=== PATIENT | male | born 1950 | race Caucasian/White ===

== ENCOUNTER 2017-08-24 16:50 | Inpatient (IN) | payer MEDICARE, MEDICAID ==
[2017-08-24 17:25] VITALS: BP 108/68
[2017-08-24] MEDS ORDERED: Maalox 30 mL Cup PO PRN (17:42)
[2017-08-24] MEDS ORDERED: Magnesium Hydroxide (MOM) 30 mL UDC PO PRN (17:42)
[2017-08-25] MEDS: Multivitamin Tab PO SCH (10:11)
[2017-08-25] MEDS: Dabigatran Mesylate 75 mg Cap PO SCH ×2 (10:31→16:30)
[2017-08-25] MEDS: Hydrocodone/APAP 10 mg/325 mg Tab PO PRN (20:51)
--- NOTE | 2017-08-25 21:29 | History and Physical ---
History of Present Illness - HPI Chief Complaint: Mental health disorder HPI: 67 yrs old male was admitted to [facility] for mental health evaluation and treatment. Patient stated he was recently hospitalized and was diagnosed with bilateral leg DVT. He stated that he left the hospital AMA without any work up. He complaints of bilateral knee pain 10 and requested stronger pain medication. Vital Signs: Last Vital Signs Temp 97.3 F 08/24/17 20:00 Pulse 73 08/24/17 20:00 Resp 20 08/25/17 08:00 BP 106/73 08/24/17 20:00 Pulse Ox 98 08/24/17 20:00 Past Medical History Pulmonary: Report: No Pertinent Hx LEARNING AND DEVELOPMENT MANAGER: Report: No Pertinent Hx, Peripheral neuropathy GI: Report: No Pertinent Hx Psych: Report: Other (mental health disorder) Musculoskeletal: Report: Osteoarthritis Infectious Disease: Report: No Pertinent Hx Renal/: Report: No Pertinent Hx Endocrine: Report: No Pertinent Hx Dermatology: Report: No Pertinent Hx Social History Smoke: 1 pack per day Alcohol: None Drugs: None Lives: Alone Domestic Violence: Negative (None) - Medications Home Medications: Home Medication Medication Instructions Recorded Type Dabigatran Etexilate Mesylate 150 mg PO BID 08/24/17 History [Pradaxa] Gabapentin 300 mg PO TID 08/24/17 History Latanoprost 0.005% Ophth Soln 1 drop EACH EYE DAILY 08/24/17 History [Xalatan 0.005% Ophth Soln] [place] Carbonate 900 mg PO 08/24/17 History Mirtazapine [Remeron] 30 mg PO HS 08/24/17 History buPROPion [Wellbutrin] 100 mg PO DAILY 08/24/17 History - Allergies Allergies/Adverse Reactions: Allergies Allergy/AdvReac Type Severity Reaction Status Date / Time No Known Allergies Allergy Verified 08/24/17 17:17 Review of Systems - Review of Systems Constitutional: Report: No Significant Eyes: Report: No Significant ENT: Report: No Significant Respiratory: Report: No Significant Cardiovascular: Report: No Significant Gastrointestinal: Report: No Significant Musculoskeletal: Report: Other (knee pain) Skin: Report: No Significant Neurological: Report: No Significant Physical Exam - Physical Exam Neck: Report: Within normal limits Cardiovascular Systems: Report: No JVD Present Respiratory: Report: Breath Sounds are within normal limits Abdomen: Report: Non-tender to palpation Extremities: Report: Non-tender to palpation. Skin: Report: Color of skin is within normal limits - Assessment Assessment: Bilateral leg DVT per history Bilateral Knee pain Smoking Neuropathy Mental health disorder - Plan Plan: Bilateral leg venous doppler to confirm DVT Continue anticogualtion Bilateral knee xray Mobile added Smoking cessation advise Psych management per psychitrist Plan of care discussed with nursing staff SANDEEP Sutherland
--- NOTE | 2017-08-26 06:13 | Psychosocial Evaluation ---
DATE OF SERVICE: JUSTIFICATION FOR HOSPITALIZATION: The patient came to the hospital seeking help, "I need to tune up," attesting to severe depression, suicidal, endorsing intent and plan, currently on hold. CHIEF COMPLAINT: "I need help." HISTORY OF PRESENT ILLNESS: A 67-year-old male with history of bipolar, history of suicide attempts, hospitalizations in the past, stopped his medications because he felt that he was doing better, but decompensated, endorsing intent and plan to hurt self, shoot self. The patient attesting to fair sleep, poor appetite, also increased alcohol intake, erratic use of whiskey, last drink was about 4 days ago. PAST PSYCHIATRIC HISTORY: Suicide attempt many years ago, he cut his wrist, "it was a cry for help." He notes he has been to psychiatric hospitals in the past. FAMILY HISTORY: Noncontributory. SOCIAL HISTORY: Born in [place], currently living in [place] by himself, single, never , no kids. He does use nicotine, trying to cut back, erratic use of alcohol, no other drugs of abuse. MEDICATIONS: Reviewed. MENTAL STATUS EXAMINATION: Somewhat unkempt, long hilliard. Good eye contact. Speech within normal limits. Mood "overall better." Affect broad. Thought processes were linear. The patient currently here due to SI, endorsing intent and plan. No HI. No overt psychotic symptoms. Insight and judgment fair. He wants help. PROVISIONAL DIAGNOSES: Bipolar, most recent episode depressed. No evidence of psychosis. MEDICAL: Please see full H and P. Pain 0/10. ESTIMATED LENGTH OF STAY: 5-10 days. ASSESSMENT: The patient requiring inpatient hospitalization, severely depressed, suicidal, not brittany for safety, but wanting help. PLAN: Restart lithium. TREATMENT PLAN: Includes group as well as milieu therapy. CONDITIONS FOR DISCHARGE: Improved mood, improved affect, cessation of any SI, better control of his mood symptoms. [facility]# [id number]
[2017-08-26] MEDS: Hydrocodone/APAP 10 mg/325 mg Tab PO PRN ×3 (06:49→20:49)
--- NOTE | 2017-08-26 07:52 | Diagnostic Imaging Report ---
Left knee (2 views) HISTORY: Pain There is severe lateral joint space narrowing. Hypertrophic bone formation noted about the lateral tibial plateau. Small spur formation noted about the medial tibial plateau and tibial spines. Marked narrowing of the patellofemoral joint region with hypertrophic bone formation. No acute abnormalities. No fractures. Small calcification noted in the soft tissues adjacent to the medial femoral condyle probably a dystrophic basis. Additional vascular calcification noted. IMPRESSION: 1. No acute abnormalities 2. Severe degenerative joint disease 3. Atherosclerotic vascular changes
--- NOTE | 2017-08-26 07:53 | Diagnostic Imaging Report ---
Right knee (2 views) HISTORY: Pain Severe lateral joint space narrowing. Hypertrophic bone formation noted about the lateral femoral condyle and lateral tibial plateau. Narrowing and marked hypertrophic bone formation seen about the patellofemoral joint region. No acute abnormalities. No fractures. Vascular calcification is seen. IMPRESSION: 1. Severe degenerative joint disease 2. No acute abnormalities 3. Atherosclerotic vascular changes
[2017-08-26] MEDS: Dabigatran Mesylate 75 mg Cap PO SCH ×2 (09:57→16:46)
[2017-08-26] MEDS: Multivitamin Tab PO SCH (09:57)
--- NOTE | 2017-08-26 12:58 | Diagnostic Imaging Report ---
Bilateral lower extremity DVT study HISTORY: Pain COMPARISON: None Technique: Longitudinal and transverse sonographic images of the bilateral lower extremity veins were obtained with doppler analysis. FINDINGS: Exam of the right side demonstrates diffuse thrombus extending from the right common femoral to the right superficial femoral vein. The remaining veins of the right lower extremity are patent without evidence of DVT formation. Exam of the left side demonstrates thrombus within the left common femoral and proximal left superficial femoral vein. The remaining the left lower extremity are patent without evidence of thrombus formation. 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 There may be minimal debris within the Lang's cyst. IMPRESSION: Positive DVT study with thrombus visualized in the right common femoral and throughout the right superficial femoral vein. There is also thrombus visualized in the left common femoral and proximal left superficial femoral vein. 4.3 x 1.9 x 2.5 cm cystic lesion with a septation of the right popliteal fossa most disability representative of a Lang's cyst. There may be minimal debris within the Lang's cyst. Please correlate with clinical findings.
--- NOTE | 2017-08-26 22:55 | Progress Notes ---
DATE: 08/26/[address] Villalobos. Case was discussed with staff of the patient, reviewed records. The patient is a 67-year-old male who was admitted of 08/24/2017 because of severe depression. He was having plans to harm himself with a history of bipolar disorder and suicide attempts. He apparently stopped his medications since last hospitalized ____ going to be better, but decompensated. He wants to shoot himself. He is sleeping poorly. He has been using alcohol, erratic use of whiskey, last drink was 4 days prior to admission. He has suicide attempt many years ago, he cut his wrists. It was a cry for help. He reports he has been to psychiatric hospitals in the past. The patient continues to be depressed, overwhelmed, continues to be unable to contract for safety, or make safe plan for self-care. He has been on Wellbutrin 100 mg twice a day and Neurontin 300 mg 3 times a day, lithium 900 mg daily, and Remeron 30 mg at bedtime with no side effects, no sedation, no nausea, and he tends to be not ready to go. We will continue with outpatient group therapy, milieu therapy, and adjust medications as needed. JOB# [id number]
[2017-08-27] MEDS: Hydrocodone/APAP 10 mg/325 mg Tab PO PRN ×3 (03:13→20:15)
[2017-08-27] MEDS: Dabigatran Mesylate 75 mg Cap PO SCH ×2 (08:45→16:39)
[2017-08-27] MEDS: Multivitamin Tab PO SCH (08:45)
[2017-08-28] MEDS: Hydrocodone/APAP 10 mg/325 mg Tab PO PRN ×3 (06:03→20:46)
[2017-08-28] MEDS: Multivitamin Tab PO SCH (08:30)
[2017-08-28] MEDS: Dabigatran Mesylate 75 mg Cap PO SCH ×2 (08:31→17:09)
--- NOTE | 2017-08-28 19:26 | Consultation ---
DATE OF CONSULTATION: 08/28/2017 HEMATOLOGY ONCOLOGY CONSULTATION REFERRING PHYSICIAN: Everett De Santiago M.D. REASON FOR CONSULTATION: Deep vein thrombosis. HISTORY OF PRESENT ILLNESS: The patient is a 67-year-old male who was admitted to the [facility] unit because of psych disorder. He had a history of bilateral deep vein thrombosis and was treated in the past with Lovenox and then switched to Pradaxa. His repeat venous duplex study in the hospital confirmed bilateral common femoral vein and superficial femoral vein thrombosis. Apparently, the patient left AMA from the other hospital and he is noncompliant, he was supposedly on Pradaxa as outpatient. PAST MEDICAL HISTORY: Psychosis and arthritis. MEDICATIONS: Reviewed including Pradaxa 150 mg twice a day, lithium, mirtazapine, bupropion, and gabapentin. PHYSICAL EXAMINATION: GENERAL: He is awake, alert, ambulatory. VITAL SIGNS: Afebrile, blood pressure is stable. ____ somewhat disheveled. NECK: No peripheral lymphadenopathy. CHEST: Clear. ABDOMEN: Soft. EXTREMITIES: Edema of peripheral veins of both lower extremities with multiple scratch israel associated with erythema and some ulceration of the knee. Venous duplex of the lower extremities from 08/26/2017 reported a positive deep vein thrombosis with thrombus in the right common femoral throughout the right superficial femoral vein and thrombus in the left common femoral and proximal left superficial femoral vein. LABORATORY DATA: Pending. ASSESSMENT: Bilateral common femoral and superficial femoral vein thrombosis. The patient was treated in the past with Lovenox and then switched to Pradaxa. The patient does not compliant. 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 I will follow the CBC and coag panel. The patient does not have any respiratory symptoms to worry suspicion of pulmonary embolism at this time. Thank you Dr. De Santiago for the opportunity to participate in the care of this interesting case with you. JOB# [id number]
--- NOTE | 2017-08-28 20:21 | Psychosocial Evaluation ---
DATE OF SERVICE: 08/27/2017 HISTORY OF PRESENT ILLNESS: The patient was seen and evaluated. The patient's chart reviewed. He is a 67-year-old male with a history of bipolar, suicide attempt, and multiple psychiatric disease. The patient had stopped his medications because he felt he was doing better, but does report that after discontinuing his medication, he feels lot of racing thoughts and feeling very overwhelmed and decompensating and endorsing to suicidal ideation to shoot himself. Today on [id number]-[id number]-[id number] evaluation, the patient reports that he regrets taking himself off of lithium. He feels overwhelmed. Recently we initiated him back on lithium without any complications. MENTAL STATUS EXAMINATION: Depressed, melancholic, overwhelmed. ASSESSMENT AND PLAN: The patient is a 67-year-old male with a history of bipolar who had been noncompliant with medications. We will continue with lithium ____ reinitiated on 100 mg, tolerating without any complications or side effects and Wellbutrin 100 mg p.o. b.i.d. ____ patient's comorbid. He has been refusing Remeron. We will continue monitoring and evaluating him and may consider reducing or titrating him off the mirtazapine while allowing the lithium to reach a steady state. [facility]# [id number]
--- NOTE | 2017-08-28 22:40 | General Progress Note ---
Subjective - Review of Systems Service Date: 08/28/17 Subjective: Patient was seen and examined for follow up. Patient reported that his pain is not under control with current pain meds. He requested stronger pain medication. At the time of my evaluation patient was sitting comfortably in patio smoking cigarette Patient stated that in the past he was given 2 norco tab every 4 hr but he dosen 't want too much of tyelenol He described his pain is off and on Objective - Physical Exam Vitals and I&O: Vital Signs Temp 97.6 F 08/28/17 20:34 Pulse 86 08/28/17 20:34 Resp 20 08/28/17 20:34 BP 127/87 08/28/17 20:34 Pulse Ox 97 08/28/17 20:34 Intake & Output 08/28/17 08/28/17 08/29/17 06:59 18:59 06:59 Intake Total 240 420 Balance 240 420 Intake: Oral 240 420 Other: # Voids 2 2 Active Medications: Current Medications Acetaminophen (Tylenol) 650 mg PO Q4HR PRN PRN Reason: Mild Pain / Temp above 100 Stop: 10/23/17 17:41 Acetaminophen/Hydrocodone Bitart ([place] 10 Mg/325 Mg) 1 tab PO Q6H PRN PRN Reason: SEVERE pain BLE Stop: 10/24/17 17:46 Last Admin: 08/28/17 20:46 Dose: 1 tab Al Hydrox/Mg Hydrox/Simethicone (Maalox) 30 ml PO Q4HR PRN PRN Reason: GI DISTRESS Stop: 10/23/17 17:41 Bupropion HCl (Wellbutrin) 100 mg PO BID DESIREE PRN Reason: Protocol Stop: 10/24/17 08:59 Last Admin: 08/28/17 16:18 Dose: 100 mg Gabapentin (Neurontin) 300 mg PO TID DESIREE Stop: 10/23/17 20:59 Last Admin: 08/28/17 20:46 Dose: 300 mg Latanoprost (Xalatan 0.005% Ophth Soln) 1 drop EACH EYE HS [facility] Stop: 10/23/17 20:59 Last Admin: 08/28/17 21:37 Dose: 1 drop [place] Carbonate (Eskalith) 900 mg PO DAILY DESIREE PRN Reason: Protocol Stop: 10/24/17 08:59 Last Admin: 08/28/17 08:31 Dose: 900 mg Lorazepam (Ativan) 0.5 mg PO Q4HR PRN; Protocol PRN Reason: Anxiety Stop: 09/23/17 17:41 Magnesium Hydroxide (Milk Of Magnesia) 30 ml PO HS PRN PRN Reason: Constipation Mirtazapine (Remeron) 30 mg PO HS DESIREE PRN Reason: Protocol Stop: 10/23/17 20:59 Last Admin: 08/28/17 20:46 Dose: 30 mg Morphine Sulfate (Ms-Contin) 15 mg PO BID DESIREE Stop: 10/27/17 16:59 Last Admin: 08/28/17 16:18 Dose: 15 mg Multivitamins/Vitamin C (Theragran) 1 tab PO DAILY [facility] Stop: 10/24/17 08:59 Last Admin: 08/28/17 08:30 Dose: 1 tab Zolpidem Tartrate (Ambien) 5 mg PO HS PRN PRN Reason: Insomnia Stop: 10/23/17 17:41 General: Alert Cardiovascular: Regular rate Lungs: Clear to auscultation Assessment/Plan - Assessment Assessment: Bilateral leg DVT Bilateral Knee severe DJD per Xray Smoking Neuropathy Mental health disorder - Plan Plan: Discussed with patient re: pain management Risk related to multiple pain meds discussed with the patient He understood well and agreed with MS CONTIN and BIRDIE. New order given to the nurse. Will continue monitoring patient's pain. Hematology evaluation noted and appreciated. Continue anticoagulation Smoking cessation highly advised Psych management per psychitrist Plan of care discussed with nursing staff SANDEEP Sutherland
[2017-08-29] MEDS: Hydrocodone/APAP 10 mg/325 mg Tab PO PRN ×3 (04:31→20:31)
[2017-08-29 07:59] LABS: % EOSINOPHILS 8.9 % (0.0-5.0); % LYMPHOCYTES 19.3 % (20.0-50.0); % MONOCYTES 13.5 % (2.0-10.0); % NEUTROPHILS 58.3 % (40.0-80.0); EOSINOPHILE ABSOLUTE 0.6 Th/cmm (0.1-0.4); HEMATOCRIT 35.7 % (41.0-60); HEMOGLOBIN 11.5 gm/dL (12-16); LYMPHOCYTE ABSOLUTE 1.2 Th/cmm (1.5-3.0); MEAN CELL VOLUME 85.7 fl (80-99); MEAN CORPUSCULAR HEMOGLOBIN 27.6 pg (27.0-31.0); MEAN CORPUSCULAR HGB CONC 32.2 pg (28.0-36.0); MEAN PLATELET VOLUME 7.4 fl; MONOCYTE ABSOLUTE 0.9 Th/cmm (0.3-1.0); NEUTROPHILE ABSOLUTE 3.7 Th/cmm (1.8-8.0); PLATELET COUNT 298 Th/cmm (150-400); RED BLOOD COUNT 4.16 Mil/cmm (3.80-5.80); RED CELL DISTRIBUTION WIDTH 15.9 % (11.5-20.0); WHITE BLOOD COUNT 6.4 Th/cmm (4.8-10.8)
[2017-08-29 08:06] LABS: INR 1.15 (0.5-1.4); PROTHROMBIN TIME (TEST) 12.1 SECONDS (9.5-11.5)
[2017-08-29] MEDS: Dabigatran Mesylate 75 mg Cap PO SCH ×2 (08:44→16:18)
[2017-08-29] MEDS: Multivitamin Tab PO SCH (08:45)
--- NOTE | 2017-08-29 10:07 | General Progress Note ---
Subjective - Review of Systems Service Date: 08/29/17 Subjective: still intermittent pain Objective - Results Result Diagrams: 08/29/17 07:20 Recent Labs: Laboratory Last Values WBC 6.4 Th/cmm (4.8-10.8) 08/29/17 07:20 RBC 4.16 Mil/cmm (3.80-5.80) 08/29/17 07:20 Hgb 11.5 gm/dL (12-16) L 08/29/17 07:20 Hct 35.7 % (41.0-60) L 08/29/17 07:20 MCV 85.7 fl (80-99) 08/29/17 07:20 MCH 27.6 pg (27.0-31.0) 08/29/17 07:20 MCHC Differential 32.2 pg (28.0-36.0) 08/29/17 07:20 RDW 15.9 % (11.5-20.0) 08/29/17 07:20 Plt Count 298 Th/cmm (150-400) 08/29/17 07:20 MPV 7.4 fl 08/29/17 07:20 Neutrophils % 58.3 % (40.0-80.0) 08/29/17 07:20 Lymphocytes % 19.3 % (20.0-50.0) L 08/29/17 07:20 Monocytes % 13.5 % (2.0-10.0) H 08/29/17 07:20 Eosinophils % 8.9 % (0.0-5.0) H 08/29/17 07:20 Basophils % 0.0 % (0.0-2.0) 08/29/17 07:20 PT 12.1 SECONDS (9.5-11.5) H 08/29/17 07:20 INR 1.15 (0.5-1.4) 08/29/17 07:20 PTT (Actin FS) 28.5 SECONDS (26.0-38.0) 08/29/17 07:20 - Physical Exam Vitals and I&O: Vital Signs Temp 98.1 F 08/29/17 06:39 Pulse 81 08/29/17 06:39 Resp 20 08/29/17 06:39 BP 126/80 08/29/17 06:39 Pulse Ox 97 08/29/17 06:39 Intake & Output 08/28/17 08/29/17 08/29/17 18:59 06:59 18:59 Intake Total 880 Balance 880 Intake: Oral 880 Other: # Voids 2 Active Medications: Current Medications Acetaminophen (Tylenol) 650 mg PO Q4HR PRN PRN Reason: Mild Pain / Temp above 100 Stop: 10/23/17 17:41 Acetaminophen/Hydrocodone Bitart ([place] 10 Mg/325 Mg) 1 tab PO Q6H PRN PRN Reason: SEVERE pain BLE Stop: 10/24/17 17:46 Last Admin: 08/29/17 04:31 Dose: 1 tab Al Hydrox/Mg Hydrox/Simethicone (Maalox) 30 ml PO Q4HR PRN PRN Reason: GI DISTRESS Stop: 10/23/17 17:41 Bupropion HCl (Wellbutrin) 100 mg PO BID DESIREE PRN Reason: Protocol Stop: 10/24/17 08:59 Last Admin: 08/28/17 16:18 Dose: 100 mg Gabapentin (Neurontin) 300 mg PO TID DESIREE Stop: 10/23/17 20:59 Last Admin: 08/28/17 20:46 Dose: 300 mg Latanoprost (Xalatan 0.005% Ophth Soln) 1 drop EACH EYE HS DESIREE Stop: 10/23/17 20:59 Last Admin: 08/28/17 21:37 Dose: 1 drop [place] Carbonate (Eskalith) 900 mg PO DAILY DESIREE PRN Reason: Protocol Stop: 10/24/17 08:59 Last Admin: 08/28/17 08:31 Dose: 900 mg Lorazepam (Ativan) 0.5 mg PO Q4HR PRN; Protocol PRN Reason: Anxiety Stop: 09/23/17 17:41 Magnesium Hydroxide (Milk Of Magnesia) 30 ml PO HS PRN PRN Reason: Constipation Mirtazapine (Remeron) 30 mg PO HS DESIREE PRN Reason: Protocol Stop: 10/23/17 20:59 Last Admin: 08/28/17 20:46 Dose: 30 mg Morphine Sulfate (Ms-Contin) 15 mg PO BID DESIREE Stop: 10/27/17 16:59 Last Admin: 08/28/17 16:18 Dose: 15 mg Multivitamins/Vitamin C (Theragran) 1 tab PO DAILY DESIREE Stop: 10/24/17 08:59 Last Admin: 08/28/17 08:30 Dose: 1 tab Zolpidem Tartrate (Ambien) 5 mg PO HS PRN PRN Reason: Insomnia Stop: 10/23/17 17:41 General: Alert Cardiovascular: Regular rate Lungs: Clear to auscultation Extremities: Edema, Other (scratch israel and erythema) Assessment/Plan - Assessment Assessment: * Bilateral DVT of common fermoral and superficial femoral Continue Pradaxa 150 bid cbc and coags noted
--- NOTE | 2017-08-29 14:22 | Progress Notes ---
DATE: SUBJECTIVE: The patient was seen and evaluated. The patient's chart reviewed. Overnight staff reported the patient continuously was isolated, withdrawn. Today on [id number] evaluation, the patient reported suicidal ideation, feeling depressed, overwhelmed. MENTAL STATUS EXAMINATION: Depressed, overwhelmed, endorsing SI. ASSESSMENT AND PLAN: The patient is a 67-year-old male with a history of bipolar, had been noncompliant with medications. Reinitiating the medications, has been tolerated without any complications or side effects of medications. We will continue with the current medication regimen as he was recently ____ after he was noncompliant for about a week. Due to the patient's active SI and depressed state, he is unable to formulate a safe plan outside the structured environment. JOB# [id number]
[2017-08-30] MEDS: Hydrocodone/APAP 10 mg/325 mg Tab PO PRN ×3 (02:39→20:43)
--- NOTE | 2017-08-30 07:49 | Progress Notes ---
DATE: SUBJECTIVE: The patient was seen and evaluated. The patient's chart reviewed. Overnight, staff reported that the patient continues to be isolative within his room. Today, on [id number] evaluation, the patient reported that the symptoms of him feeling suicidal are less intense, but thoughts still persist and make him feel very overwhelmed. MENTAL STATUS EXAMINATION: Still endorsing SI, melancholic, overwhelmed. Poor insight, judgment and impulse control. ASSESSMENT AND PLAN: A 67-year-old male with a history of bipolar, current episode of depression, stabilizing with reinitiating of his medications well without any side effects to medications. At this point, we will continue monitoring and evaluating as medications are starting to build steady state. Also, we will continue monitoring the patient's use of opiates. He is very perseverant about being discharged with opiates. There is a secondary gain component to opiate. We will have a second medical evaluation to discuss alternative as the patient is very unlikely to be discharged with opiates and also reach a plan to continue following up with pain management. [facility]# [id number]
[2017-08-30] MEDS: Multivitamin Tab PO SCH (08:37)
[2017-08-30] MEDS: Dabigatran Mesylate 75 mg Cap PO SCH ×2 (17:30)
--- NOTE | 2017-08-30 19:06 | General Progress Note ---
Subjective - Review of Systems Service Date: 08/30/17 Subjective: still intermittent pain Objective - Results Result Diagrams: 08/29/17 07:20 Recent Labs: Laboratory Last Values WBC 6.4 Th/cmm (4.8-10.8) 08/29/17 07:20 RBC 4.16 Mil/cmm (3.80-5.80) 08/29/17 07:20 Hgb 11.5 gm/dL (12-16) L 08/29/17 07:20 Hct 35.7 % (41.0-60) L 08/29/17 07:20 MCV 85.7 fl (80-99) 08/29/17 07:20 MCH 27.6 pg (27.0-31.0) 08/29/17 07:20 MCHC Differential 32.2 pg (28.0-36.0) 08/29/17 07:20 RDW 15.9 % (11.5-20.0) 08/29/17 07:20 Plt Count 298 Th/cmm (150-400) 08/29/17 07:20 MPV 7.4 fl 08/29/17 07:20 Neutrophils % 58.3 % (40.0-80.0) 08/29/17 07:20 Lymphocytes % 19.3 % (20.0-50.0) L 08/29/17 07:20 Monocytes % 13.5 % (2.0-10.0) H 08/29/17 07:20 Eosinophils % 8.9 % (0.0-5.0) H 08/29/17 07:20 Basophils % 0.0 % (0.0-2.0) 08/29/17 07:20 PT 12.1 SECONDS (9.5-11.5) H 08/29/17 07:20 INR 1.15 (0.5-1.4) 08/29/17 07:20 PTT (Actin FS) 28.5 SECONDS (26.0-38.0) 08/29/17 07:20 - Physical Exam Vitals and I&O: Vital Signs Temp 97.9 F 08/30/17 14:30 Pulse 91 08/30/17 14:30 Resp 20 08/30/17 14:30 BP 97/55 08/30/17 14:30 Pulse Ox 98 08/30/17 14:30 Intake & Output 08/30/17 08/30/17 08/31/17 06:59 18:59 06:59 Intake Total 240 1000 Balance 240 1000 Intake: Oral 240 1000 Other: # Voids 1 4 # Bowel Movements 1 Active Medications: Current Medications Acetaminophen (Tylenol) 650 mg PO Q4HR PRN PRN Reason: Mild Pain / Temp above 100 Stop: 10/23/17 17:41 Acetaminophen/Hydrocodone Bitart ([place] 10 Mg/325 Mg) 1 tab PO Q6H PRN PRN Reason: SEVERE pain BLE Stop: 10/24/17 17:46 Last Admin: 08/30/17 13:50 Dose: 1 tab Al Hydrox/Mg Hydrox/Simethicone (Maalox) 30 ml PO Q4HR PRN PRN Reason: GI DISTRESS Stop: 10/23/17 17:41 Bupropion HCl (Wellbutrin) 100 mg PO BID DESIREE PRN Reason: Protocol Stop: 10/24/17 08:59 Last Admin: 08/30/17 17:03 Dose: Not Given Gabapentin (Neurontin) 300 mg PO TID DESIREE Stop: 10/23/17 20:59 Last Admin: 08/30/17 17:30 Dose: Not Given Latanoprost (Xalatan 0.005% Ophth Soln) 1 drop EACH EYE HS DESIREE Stop: 10/23/17 20:59 Last Admin: 08/29/17 21:30 Dose: 1 drop [place] Carbonate (Eskalith) 900 mg PO DAILY DESIREE PRN Reason: Protocol Stop: 10/24/17 08:59 Last Admin: 08/30/17 13:36 Dose: Not Given Lorazepam (Ativan) 0.5 mg PO Q4HR PRN; Protocol PRN Reason: Anxiety Stop: 09/23/17 17:41 Magnesium Hydroxide (Milk Of Magnesia) 30 ml PO HS PRN PRN Reason: Constipation Mirtazapine (Remeron) 30 mg PO HS DESIREE PRN Reason: Protocol Stop: 10/23/17 20:59 Last Admin: 08/29/17 21:30 Dose: 30 mg Morphine Sulfate (Ms-Contin) 15 mg PO BID DESIREE Stop: 10/27/17 16:59 Last Admin: 08/30/17 17:30 Dose: 15 mg Multivitamins/Vitamin C (Theragran) 1 tab PO DAILY DESIREE Stop: 10/24/17 08:59 Last Admin: 08/30/17 08:37 Dose: 1 tab Zolpidem Tartrate (Ambien) 5 mg PO HS PRN PRN Reason: Insomnia Stop: 10/23/17 17:41 General: Alert Cardiovascular: Regular rate Lungs: Clear to auscultation Extremities: Edema, Other (scratch israel and erythema) Assessment/Plan - Assessment Assessment: * Bilateral DVT of common fermoral and superficial femoral Continue Pradaxa 150 bid cbc and coags noted
[2017-08-31] MEDS: Dabigatran Mesylate 75 mg Cap PO SCH ×2 (08:54→17:09)
[2017-08-31] MEDS: Multivitamin Tab PO SCH (08:54)
--- NOTE | 2017-08-31 10:19 | General Progress Note ---
Subjective - Review of Systems Service Date: 08/31/17 Subjective: still intermittent pain Objective - Results Result Diagrams: 08/29/17 07:20 Recent Labs: Laboratory Last Values WBC 6.4 Th/cmm (4.8-10.8) 08/29/17 07:20 RBC 4.16 Mil/cmm (3.80-5.80) 08/29/17 07:20 Hgb 11.5 gm/dL (12-16) L 08/29/17 07:20 Hct 35.7 % (41.0-60) L 08/29/17 07:20 MCV 85.7 fl (80-99) 08/29/17 07:20 MCH 27.6 pg (27.0-31.0) 08/29/17 07:20 MCHC Differential 32.2 pg (28.0-36.0) 08/29/17 07:20 RDW 15.9 % (11.5-20.0) 08/29/17 07:20 Plt Count 298 Th/cmm (150-400) 08/29/17 07:20 MPV 7.4 fl 08/29/17 07:20 Neutrophils % 58.3 % (40.0-80.0) 08/29/17 07:20 Lymphocytes % 19.3 % (20.0-50.0) L 08/29/17 07:20 Monocytes % 13.5 % (2.0-10.0) H 08/29/17 07:20 Eosinophils % 8.9 % (0.0-5.0) H 08/29/17 07:20 Basophils % 0.0 % (0.0-2.0) 08/29/17 07:20 PT 12.1 SECONDS (9.5-11.5) H 08/29/17 07:20 INR 1.15 (0.5-1.4) 08/29/17 07:20 PTT (Actin FS) 28.5 SECONDS (26.0-38.0) 08/29/17 07:20 - Physical Exam Vitals and I&O: Vital Signs Temp 0 F 08/31/17 06:38 Pulse 95 08/30/17 20:24 Resp 20 08/30/17 20:24 BP 118/76 08/30/17 20:24 Pulse Ox 100 08/30/17 20:24 Intake & Output 08/30/17 08/31/17 08/31/17 18:59 06:59 18:59 Intake Total 1000 240 Balance 1000 240 Intake: Oral 1000 240 Other: # Voids 4 3 # Bowel Movements 1 0 Active Medications: Current Medications Acetaminophen (Tylenol) 650 mg PO Q4HR PRN PRN Reason: Mild Pain / Temp above 100 Stop: 10/23/17 17:41 Acetaminophen/Hydrocodone Bitart ([place] 10 Mg/325 Mg) 1 tab PO Q6H PRN PRN Reason: SEVERE pain BLE Stop: 10/24/17 17:46 Last Admin: 08/30/17 20:43 Dose: 1 tab Al Hydrox/Mg Hydrox/Simethicone (Maalox) 30 ml PO Q4HR PRN PRN Reason: GI DISTRESS Stop: 10/23/17 17:41 Bupropion HCl (Wellbutrin) 100 mg PO BID DESIREE PRN Reason: Protocol Stop: 10/24/17 08:59 Last Admin: 08/30/17 17:03 Dose: Not Given Gabapentin (Neurontin) 300 mg PO TID DESIREE Stop: 10/23/17 20:59 Last Admin: 08/31/17 08:54 Dose: 300 mg Latanoprost (Xalatan 0.005% Ophth Soln) 1 drop EACH EYE HS DESIREE Stop: 10/23/17 20:59 Last Admin: 08/30/17 20:45 Dose: [address] [place] Carbonate (Eskalith) 900 mg PO DAILY DESIREE PRN Reason: Protocol Stop: 10/24/17 08:59 Last Admin: 08/30/17 13:36 Dose: Not Given Lorazepam (Ativan) 0.5 mg PO Q4HR PRN; Protocol PRN Reason: Anxiety Stop: 09/23/17 17:41 Magnesium Hydroxide (Milk Of Magnesia) 30 ml PO HS PRN PRN Reason: Constipation Mirtazapine (Remeron) 30 mg PO HS DESIREE PRN Reason: Protocol Stop: 10/23/17 20:59 Last Admin: 08/30/17 20:43 Dose: Not Given Morphine Sulfate (Ms-Contin) 15 mg PO BID DESIREE Stop: 10/27/17 16:59 Last Admin: 08/31/17 08:54 Dose: 15 mg Multivitamins/Vitamin C (Theragran) 1 tab PO DAILY DESIREE Stop: 10/24/17 08:59 Last Admin: 08/31/17 08:54 Dose: 1 tab Zolpidem Tartrate (Ambien) 5 mg PO HS PRN PRN Reason: Insomnia Stop: 10/23/17 17:41 General: Alert Cardiovascular: Regular rate Lungs: Clear to auscultation Extremities: Edema, Other (scratch [place] and erythema) Assessment/Plan - Assessment Assessment: * Bilateral DVT of common fermoral and superficial femoral Continue Pradaxa 150 bid monitor cbc in am
--- NOTE | 2017-08-31 12:57 | Progress Notes ---
DATE: 08/30/2017 SUBJECTIVE: The patient needing help, attesting to depression, drinking, suicidal, history of bipolar, decompensating. On [id number], the patient is quite demanding, demanding to leave the hospital on with a prescription for opiates. The problem is he is also a heavy drinker, so I am not quite sure that I will be comfortable with this plan. He is on MS Contin and hydrocodone. The patient is currently on lithium, states he is feeling somewhat better, more hopeful, more optimistic. The patient states if he does not get opiates on his way out the door, he will "self-medicate with alcohol." The patient is attesting to a pain, pain currently being addressed. The patient has been drinking whiskey and binge drinking. The patient with a diagnosis of bipolar, states his mood is better, but he states that he remains somewhat upset, irritable and patient states he has a place to go and has an apartment to go to and does not want us to help him with placement. He states he actively is trying to find himself a primary medical doctor. ASSESSMENT: The patient seems to be improving. No longer suicidal, but remains demanding and seeking opiates as well. PLAN: We will continue to monitor. We will contact primary medical doctor to see if we can transition him off of opiates because I am personally not comfortable discharging him on any opiates given his alcohol history. JOB# [id number]
[2017-08-31] MEDS: Hydrocodone/APAP 10 mg/325 mg Tab PO PRN ×2 (14:02→23:37)
[2017-09-01] MEDS: Dabigatran Mesylate 75 mg Cap PO SCH (08:13)
[2017-09-01] MEDS: Multivitamin Tab PO SCH (08:14)
[2017-09-01 08:52] LABS: % EOSINOPHILS 5.9 % (0.0-5.0); EOSINOPHILE ABSOLUTE 0.5 Th/cmm (0.1-0.4); HEMOGLOBIN 11.5 gm/dL (12-16); LYMPHOCYTE ABSOLUTE 1.1 Th/cmm (1.5-3.0); MONOCYTE ABSOLUTE 1.1 Th/cmm (0.3-1.0)
--- NOTE | 2017-09-01 09:29 | Progress Notes ---
DATE: SUBJECTIVE: The patient seen, chart reviewed, discussed with staff. The patient more linear and engaged, better grooming, admits to homelessness as he did not want to give us an address which was odd, but now he states that he is homeless and he is ashamed that he was homelessness and he is denying any voices or hallucinations. He states he is feeling much better "I came in for a tune up, now I am tuned up." The patient states that he knows how to navigate the retirement system. He has been grooming on his own volition. We are trying to help him with placement, but he does not want help, he wants to leave tomorrow. Sleeping well, eating well. He is denying any overt side effects, happy with his current medications, asking for a prescription of opiates which is somewhat concerning to me given his history of erratic alcohol intake. He is very motivative for sobriety. He states he has been sober in the past, but due to my concerns, I did reach out to Dr. De Santiago yesterday to discuss treatment alternatives to opiates; however, Dr. De Santiago noting his chronic pain. The patient alluding to his need for knee surgery, Dr. De Santiago recommending that he be discharged with a small supply of [place] to get him to doctor's appointment and he does not need the MS Contin and this will mitigate some of the risks in case the patient does relapse to alcohol. ASSESSMENT: The patient linear and engaged, no SI, no HI. No psychotic symptoms, more stable. PLAN: We will plan for discharge tomorrow. The patient would like to go to a retirement. He has refused any placement at this time. I did meet with him with social work present. JOB# [id number]
[2017-09-01 09:35] LABS: % BASOPHILS 0.4 % (0.0-2.0); % LYMPHOCYTES 14.5 % (20.0-50.0); % MONOCYTES 14.4 % (2.0-10.0); % NEUTROPHILS 64.8 % (40.0-80.0); HEMATOCRIT 36.1 % (41.0-60); MEAN CELL VOLUME 86.5 fl (80-99); MEAN CORPUSCULAR HEMOGLOBIN 27.6 pg (27.0-31.0); MEAN CORPUSCULAR HGB CONC 31.9 pg (28.0-36.0); MEAN PLATELET VOLUME 7.4 fl; PLATELET COUNT 310 Th/cmm (150-400); RED BLOOD COUNT 4.17 Mil/cmm (3.80-5.80)
[2017-09-01 09:36] LABS: WHITE BLOOD COUNT 7.7 Th/cmm (4.8-10.8)
--- NOTE | 2017-09-03 02:38 | Progress Notes ---
DATE: 09/01/2017 Dr. Solomon covering for Dr. Elise. SUBJECTIVE: Chart reviewed and the patient interviewed. Also discussed the patient's condition with the staff and reviewed records and labs. The patient is still anxious, but easier to follow directions. The patient also is less irritable and less agitated. He has been cooperative with the staff and compliant with his treatment. He also seems to be less agitated and less irritable. ASSESSMENT: The patient seems to be less psychotic and less agitated. TREATMENT PLAN: We will continue to monitor his behavior and his condition closely. Also, continue to work on discharge plans and on placement issue. JOB# [id number]
--- NOTE | 2017-09-29 19:25 | Discharge Summary ---
DATE OF DISCHARGE: 09/01/2017 JUSTIFICATION FOR HOSPITALIZATION: The patient came to the hospital stating he is depressed, suicidal. CHIEF COMPLAINT: "I need help." HISTORY OF PRESENT ILLNESS: A 67-year-old male with history of bipolar. He has history of suicide attempts, hospitalizations in the past, stopped his medications, decompensated, wanted to shoot himself. Sleeping okay, but not eating well, also with alcohol intake, erratic use of whiskey. PAST PSYCHIATRIC HISTORY: Suicide attempt many years ago. SOCIAL HISTORY: Born in [place], living in [place]. Single, never . It came to light that he was homeless. MENTAL STATUS EXAMINATION: Please see full psych eval for details. PROVISIONAL DIAGNOSES: Bipolar, depressed. No psychosis, poor medication and treatment compliant. PAST MEDICAL HISTORY: Please see full H and P. HOSPITAL COURSE: After initial assessment, the patient was reinitiated on medications including lithium, Wellbutrin. Over the course of the hospitalization, he improved, mood, improved, affect improved. He was guarded about his discharge plan but toward the latter end of his hospitalization, it came to light that he was homeless. He was no longer suicidal, no longer depressed towards the latter end of his hospitalization. Sleeping well, eating well. CONDITION UPON DISCHARGE: Improved, better ADLs, good eye contact. Speech within normal limits. Mood "okay." Affect constricted. Thought processes were linear. No SI, no HI, no intent, no plan. No psychotic symptoms. Insight and judgment better. The patient hopeful and motivated. manager bank involved with a safe discharge plan. Medications were reviewed. Tolerant of treatment, happy with treatment. No side effects. DISCHARGE DIAGNOSES: Bipolar, depressed. No psychosis, poor medication and treatment compliance. Alcohol use disorder, unspecified. Nicotine use disorder, unspecified. MEDICAL: Please see full H and P. PROGNOSIS: The patient follows up with outpatient mental health services and remain treatment compliant and stays away from alcohol. Prognosis will improve, otherwise guarded. [facility]# [id number]
== END 2017-09-01 16:30 | disposition home or self-care (01) | DRG 885 ==
LOC: GERO 16:50
PROVIDERS: ADMIT Psychiatry & Neurology Psychiatry; ATTEND Psychiatry & Neurology Psychiatry
DX: F31.9 Bipolar disorder, unspecified (principal); I82.413 Acute embolism and thrombosis of femoral vein, bilateral; R45.851 Suicidal ideations; G62.9 Polyneuropathy, unspecified; Z91.14 Patient's other noncompliance with medication regimen; M19.90 Unspecified osteoarthritis, unspecified site; F17.210 Nicotine dependence, cigarettes, uncomplicated; M25.562 Pain in left knee; M25.561 Pain in right knee; Z59.0 Homelessness; Z79.899 Other long term (current) drug therapy
CPT/HCPCS: 36415-UA; 73560-TC-LT; 73560-TC-RT; 85025-TC; 85610-TC; 93970-TC-50; Z7610